=== PATIENT | male | born 1945 | race Caucasian/White ===

== ENCOUNTER 2024-11-22 17:11 | Inpatient (IN) | payer OTHER, SELFPAY ==
[2024-11-22 17:52] VITALS: BMI 31.4
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
[2024-11-22 20:00] VITALS: BP 132/73; PULSE 68; RESP 17; TEMP 36.8; O2SAT 95
[2024-11-22] MEDS: traZODone HCL 50 MG TABLET PO (20:37)
[2024-11-22] MEDS: OLANZapine ODT 10 MG TAB.RAPDIS TRANSLINGU (20:37)
[2024-11-22] MEDS: Tamsulosin HCL 0.4 MG CAPSULE PO (20:39)
[2024-11-22] MEDS: Divalproex Sodium 250 MG TABLET.DR PO (20:39)
[2024-11-22] MEDS: Atorvastatin Calcium 10 MG TABLET PO (20:39)
--- NOTE | 2024-11-22 22:38 | P.CONHOSP_ITS ---
History of Present Illness Data of Consult Service Date: 11/22/24 Requesting physician: Bernice Rangel Primary Care Provider: Unknown Physician HPI Reason for consult: Medical H and P Patient is an 78-year-old male with past medical history of Alzheimer's, GERD, BPH, hyperlipidemia, PTSD, and ITP (per medical records from [place]) was cooperative with history and physical but not able to answer specific questions regarding past medical history or past surgical history. Patient was able to follow commands and participate in exam. Patient was experiencing increasing agitation and aggressiveness towards patients and staff and was transferred to [facility] for medical workup. UA was negative, chest x-ray negative, no obvious source of infection. Patient was cleared and was transferred to [facility] psychiatric unit for further evaluation. Currently patient's vital signs are stable, EKG performed at [facility] indicated first-degree AVB, unable to view actual EKG so unable to clarify MN interval. Heart rate 66. No evidence of open wounds, but patient did have excoriations on the left arm only. No issues with chest pain, shortness of breath, nausea, vomiting, diarrhea or constipation. Patient believed he was 82 and it was the month of April 1984 and patient stated he was ?downstairs ?. Patient did not exhibit any aggression or agitation at the time of the exam. Neuro exam also within normal limits. Review of Systems Review of Systems: Patient denies chest pain, shortness of breath, abdominal pain, nausea, vomiting, lower leg pain, headache, visual changes. Yes all other systems are reviewed and are negative [facility] Medical History (Updated 11/22/24 @ 22:44 by GRADY Cosme) Chronic ITP (idiopathic thrombocytopenia) PTSD (post-traumatic stress disorder) HLD (hyperlipidemia) BPH (benign prostatic hyperplasia) Alzheimer dementia GERD (gastroesophageal reflux disease) Cognitive capacity: Alert to self only Functional capacity: independent ambulation Pertinent family history: Patient unable to provide due to dementia Social History Household Members: Other Housing: Senior Care Do you presently have visiting nurse or other home services: No Patient Tobacco Use Status: Never used Tobacco Use of substances other than those prescribed or required for medical reasons: No Currently Displaying Signs/Symptoms of Drug Intoxication Withdrawal: No Have you been hit, kicked, punched, or otherwise hurt by someone within the past year? If so, by whom?: No Do you feel safe in your current relationship?: Yes Is there a partner from a previous relationship who is making you feel unsafe now?: No Are you made to feel afraid or neglected: No Advance Directives: No Advance Directives Information Provided: Yes Do you have a plan to hurt others: No Plan Recently lost weight without trying: No Eating poorly because of decreased appetite: No Nutrition Risks: No Nutritional Risk Poor oral hygiene: No (with prompts) Ebola Risk: Travel/Contact With Anyone From Affected Area/s: No Has Patient Experienced Ebola Symptoms: No Meds Allergies Allergy/AdvReac Type Severity Reaction Status Date / Time No Known Allergies Allergy Verified 11/22/24 19:09 Active Medications: Current Medications Acetaminophen (Acetaminophen 325 Mg Tablet) 650 mg PO Q6H PRN PRN Reason: Headache/Pain, Scale 1-10 Al Hydroxide/Mg Hydroxide (Magnesium Hydrox/Alum Hydrox 30 Ml Oral.Susp) 30 ml PO Q6H PRN PRN Reason: Heartburn/Nausea Aspirin (Aspirin Enteric Coated 81 Mg Tablet.) 81 mg PO DAILY [facility] Atorvastatin Calcium (Atorvastatin Calcium 10 Mg Tablet) 10 mg PO BEDTIME [facility] Last Admin: 11/22/24 20:39 Dose: 10 mg Divalproex Sodium (Divalproex Sodium 250 Mg Tablet.) 250 mg PO BID [facility] Last Admin: 11/22/24 20:39 Dose: 250 mg Finasteride (Finasteride 5 Mg Tablet) 5 mg PO DAILY [facility] Lorazepam (Lorazepam 1 Mg Tablet) 1 mg PO DAILY PRN PRN Reason: Anxiety Magnesium Hydroxide (Milk Of Magnesia 30 Ml Oral.Susp) 30 ml PO DAILY PRN PRN Reason: Constipation Memantine (Memantine Hcl 5 Mg Tablet) 5 mg PO DAILY [facility] Olanzapine (Olanzapine Odt 10 Mg Tab.Rapdis) 10 mg TRANSLINGU BID [facility] Last Admin: 11/22/24 20:37 Dose: 10 mg Omeprazole (Omeprazole 20 Mg Capsule.) 20 mg PO DAILY@0630 [facility] Senna/Docusate Sodium (Sennosides/Docusate Sodium Tablet) 1 tab PO BID PRN PRN Reason: Constipation Tamsulosin HCl (Tamsulosin Hcl 0.4 Mg Capsule) 0.4 mg PO BEDTIME [facility] Last Admin: 11/22/24 20:39 Dose: 0.4 mg Trazodone HCl (Trazodone Hcl 50 Mg Tablet) 50 mg PO BEDTIME MRX1 PRN PRN Reason: Insomnia Last Admin: 11/22/24 20:37 Dose: 50 mg Home Medications ?Medication ?Instructions ?Recorded ?Confirmed ?Last Taken ?Type acetaminophen 325 mg tablet 650 mg PO Q6H PRN Pain (Scale 11/22/24 11/22/24 Unknown History (Tylenol) Score 1-3) aspirin 81 mg tablet,delayed 81 mg PO DAILY 11/22/24 11/22/24 11/22/24 09:00 History release divalproex 125 mg tablet,delayed 125 mg PO BID 11/22/24 11/22/24 11/22/24 09:00 History release docusate sodium 100 mg capsule 100 mg PO DAILY 11/22/24 11/22/24 Unknown History finasteride 5 mg tablet 5 mg PO DAILY 11/22/24 11/22/24 11/22/24 09:00 History lorazepam 1 mg tablet 1 mg PO BEDTIME 11/22/24 11/22/24 Unknown History lorazepam 1 mg tablet 1 mg PO DAILY PRN Anxiety 11/22/24 11/22/24 Unknown History meloxicam 15 mg tablet 15 mg PO DAILY 11/22/24 11/22/24 Unknown History memantine 5 mg tablet 5 mg PO QAM 11/22/24 11/22/24 11/22/24 09:00 History olanzapine 10 mg disintegrating 10 mg PO BID 11/22/24 11/22/24 11/22/24 09:00 History tablet omeprazole 40 mg capsule,delayed 40 mg PO DAILY 11/22/24 11/22/24 Unknown History release prazosin 1 mg capsule 3 mg PO BEDTIME 11/22/24 11/22/24 11/21/24 20:00 History simvastatin 20 mg tablet 20 mg PO BEDTIME 11/22/24 11/22/24 11/21/24 21:00 History tamsulosin 0.4 mg capsule (Flomax) 0.4 mg PO DAILY 11/22/24 11/22/24 Unknown History trazodone 100 mg tablet 100 mg PO BEDTIME PRN Insomnia 11/22/24 11/22/24 11/21/24 20:00 History Physical Exam Vital Signs and Narrative: Vital Signs: Last Vital Signs Temp 98.3 F 11/22/24 20:00 Pulse 68 11/22/24 20:00 Resp 17 11/22/24 20:00 BP 132/73 11/22/24 20:00 Pulse Ox 95 11/22/24 20:00 O2 Del Method Room Air 11/22/24 20:00 BMI result Body Mass Index 31.4 Alert and orientated X1, unable to provide PMSH Neuro: CN II-X11 intact, no deficits, visual acuity intact EYES: PERRLA, EOM intact ENT: hearing intact, no issues with swallowing, uvula midline, lips moist, nares patent no epistaxis Cardiac: S1 S2 RRR, no murmur, no JVD, no edema in Lower ext Pulmonary: lungs clear to auscultation B Abdominal: BS active in all 4 quadrants, no guarding, tenderness, rebounding MSK: strength 5/5 upper and lower extremities, gait steady : no CVA tenderness no bladder distension Extremities: no edema in lower extremities, PT and DP pulses palpable +2 Psych: mood stable, judgement and insight poor Skin: excoriations L forearm Assessment and Plan (1) First degree atrioventricular block: Status: Acute Plan sheela is an 78-year-old male with past medical history of Alzheimer's, GERD, BPH, hyperlipidemia, PTSD, and ITP (per medical records from [place]) seen on the psychiatry unit for his medical H and P. Due to patient's level of dementia patient was unable to provide any medical or surgical history. Patient was able to participate in exam and follow commands. First-degree AV block, via EKG done at [facility] -recommend repeating EKG especially if heart rate stays below 60, and to monitor QTC. Currently heart rate is 66 -patient is not on any AV ra blocking agents -check TSH and free T4, reconsult if levels are abnormal -added magnesium level to labs -re-consult hospitalist with any concerns regarding EKG or clinical presentation BPH -continue tamsulosin and finasteride -UA was negative at [facility], no indication to repeat UA GERD -continue omeprazole -avoid food triggers Hyperlipidemia -continue simvastatin, aspirin and follow cardiac diet Idiopathic thrombocytopenia -level is above 100,000 with no spontaneous episodes of bleeding -continue to monitor platelet count at least weekly .-if less than 75,000 reconsult hospitalist for further review -recommend outpatient Hematology if needed We thank you for this consultation in the hospitalist group will currently sign off as patient has no pertinent medical issues at this time. Please feel free to reconsult hospitalist group for any medical concerns or needs.
[2024-11-23] MEDS: Omeprazole 20 MG CAPSULE.DR PO (06:12)
[2024-11-23 06:30] VITALS: BMI 31.2
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
[2024-11-23 09:29] LABS: Estimated Average Glucose 100 mg/dL; Hemoglobin A1C 127.8795 umol/L; Hemoglobin A1c % 5.1 % (<6.0); Total Hemoglobin (HGBA1C) 3929.4981 umol/L
[2024-11-23] MEDS: OLANZapine ODT 10 MG TAB.RAPDIS TRANSLINGU ×2 (09:34→20:55)
[2024-11-23] MEDS: Finasteride 5 MG TABLET PO (09:34)
[2024-11-23] MEDS: Memantine HCl 5 MG TABLET PO (09:34)
[2024-11-23] MEDS: Divalproex Sodium 250 MG TABLET.DR PO ×2 (09:34→20:55)
[2024-11-23] MEDS: Aspirin Enteric Coated 81 MG TABLET.DR PO (09:34)
[2024-11-23 09:37] LABS: Alanine Aminotransferase 37 U/L (0-40); Albumin Level 4.2 g/dL (3.5-5.0); Alkaline Phosphatase 172 U/L (39-117); Anion Gap 11 (12-20); Aspartate Amino Transferase 30 U/L (5-37); Bilirubin Total 0.8 mg/dL (0.0-1.0); Blood Urea Nitrogen 18 mg/dL (9-16); Calcium 9.1 mg/dL (8.4-10.2); Carbon Dioxide 25 mmol/L (22-29); Chloride 108 mmol/L (96-108); Cholesterol 139 mg/dL (<200); Creatinine Clr Calc Pharmacy 89.3; Estimated Glomerular Filt Rate > 60; Glucose Random 105 mg/dL (60-115); HDL Cholesterol 45 mg/dL (>40); LDL Cholesterol Calculated 78 mg/dL (<100); Potassium 4.1 mmol/L (3.3-5.1); Sodium 140 mmol/L (135-145); Total Protein 6.9 g/dL (6.5-8.0); Triglycerides 80 mg/dL (<150)
[2024-11-23 09:38] VITALS: BP 148/82; PULSE 58; RESP 18; TEMP 36.1; O2SAT 98
[2024-11-23 09:50] LABS: Thyroid Stimulating Hormone 1.06 uIU/mL (0.32-4.0)
[2024-11-23 10:05] LABS: Folate 9.5 ng/mL (> or = 4.0); Vitamin B12 496 pg/mL (200-900)
[2024-11-23 13:50] VITALS: BMI 31.2
[2024-11-23] MEDS: Acetaminophen 325 MG TABLET 650 MG PO (16:17)
[2024-11-23 20:00] VITALS: BP 155/76; PULSE 67; RESP 18; TEMP 36.6; O2SAT 96
[2024-11-23] MEDS: Tamsulosin HCL 0.4 MG CAPSULE PO (20:55)
[2024-11-23] MEDS: Atorvastatin Calcium 10 MG TABLET PO (20:55)
[2024-11-23] MEDS: traZODone HCL 50 MG TABLET PO (20:56)
--- NOTE | 2024-11-24 | ECG_ITS ---
Test Reason : av block Blood Pressure : */* mmHG Vent. Rate : 65 BPM Atrial Rate : 65 BPM P-R Int : 194 ms QRS Dur : 90 ms QT Int : 398 ms P-R-T Axes : 23 -19 28 degrees QTcB Int : 413 ms Sinus rhythm with Premature atrial complexes Inferior infarct , age undetermined Abnormal ECG No previous ECGs available Referred By: Bernice Rangel Electronically Signed By: Efren Traylor
[2024-11-24] MEDS: Omeprazole 20 MG CAPSULE.DR PO (06:32)
[2024-11-24 08:33] VITALS: BP 134/72; PULSE 57; RESP 16; TEMP 36.2; O2SAT 98
[2024-11-24] MEDS: Memantine HCl 5 MG TABLET PO (08:36)
[2024-11-24] MEDS: Finasteride 5 MG TABLET PO (08:36)
[2024-11-24] MEDS: OLANZapine ODT 10 MG TAB.RAPDIS TRANSLINGU ×2 (08:36→20:11)
[2024-11-24] MEDS: Aspirin Enteric Coated 81 MG TABLET.DR PO (08:37)
[2024-11-24] MEDS: Divalproex Sodium 250 MG TABLET.DR PO ×2 (08:37→20:11)
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
[2024-11-24] MEDS: LORazepam 1 MG TABLET PO (15:26)
[2024-11-24 19:34] VITALS: BP 151/78; PULSE 65; RESP 18; TEMP 36.2; O2SAT 98
[2024-11-24] MEDS: Atorvastatin Calcium 10 MG TABLET PO (20:11)
[2024-11-24] MEDS: Tamsulosin HCL 0.4 MG CAPSULE PO (20:11)
[2024-11-24] MEDS: QUEtiapine Fumarate 50 MG TABLET PO (20:11)
[2024-11-25] MEDS: Omeprazole 20 MG CAPSULE.DR PO (05:42)
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
[2024-11-25 08:29] VITALS: BP 152/72; PULSE 64; RESP 18; TEMP 36.5; O2SAT 97
[2024-11-25] MEDS: Memantine HCl 5 MG TABLET PO (08:32)
[2024-11-25] MEDS: QUEtiapine Fumarate 50 MG TABLET PO ×2 (08:32→15:36)
[2024-11-25] MEDS: Aspirin Enteric Coated 81 MG TABLET.DR PO (08:32)
[2024-11-25] MEDS: OLANZapine ODT 10 MG TAB.RAPDIS TRANSLINGU ×2 (08:32→20:11)
[2024-11-25] MEDS: Finasteride 5 MG TABLET PO (08:32)
[2024-11-25] MEDS: Divalproex Sodium 250 MG TABLET.DR PO ×2 (08:32→20:11)
[2024-11-25] MEDS: LORazepam 1 MG TABLET PO (15:36)
[2024-11-25 20:00] VITALS: BP 126/71; PULSE 70; RESP 18; TEMP 36.4; O2SAT 96
[2024-11-25] MEDS: Atorvastatin Calcium 10 MG TABLET PO (20:11)
[2024-11-25] MEDS: traZODone HCL 50 MG TABLET PO (20:11)
[2024-11-25] MEDS: Tamsulosin HCL 0.4 MG CAPSULE PO (20:11)
[2024-11-26] MEDS: Omeprazole 20 MG CAPSULE.DR PO (05:44)
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
[2024-11-26 08:51] VITALS: BP 122/60; PULSE 72; RESP 16; TEMP 36.4; O2SAT 95
[2024-11-26] MEDS: Finasteride 5 MG TABLET PO (08:57)
[2024-11-26] MEDS: Memantine HCl 5 MG TABLET PO (08:57)
[2024-11-26] MEDS: Divalproex Sodium 250 MG TABLET.DR PO ×2 (08:57→20:11)
[2024-11-26] MEDS: Aspirin Enteric Coated 81 MG TABLET.DR PO (08:57)
[2024-11-26] MEDS: OLANZapine ODT 10 MG TAB.RAPDIS TRANSLINGU ×2 (08:57→20:11)
[2024-11-26 20:00] VITALS: BP 139/75; PULSE 74; RESP 18; TEMP 36.4; O2SAT 95
[2024-11-26] MEDS: QUEtiapine Fumarate 50 MG TABLET PO (20:11)
[2024-11-26] MEDS: Atorvastatin Calcium 10 MG TABLET PO (20:11)
[2024-11-26] MEDS: Tamsulosin HCL 0.4 MG CAPSULE PO (20:11)
[2024-11-26] MEDS: traZODone HCL 50 MG TABLET PO (20:11)
[2024-11-27] MEDS: Omeprazole 20 MG CAPSULE.DR PO (06:10)
[2024-11-27 07:28] LABS: Ammonia 53 umol/L (13-55)
[2024-11-27 07:30] LABS: Valproate 25.2 mcg/mL (50.0-100.0)
[2024-11-27 08:00] VITALS: RESP 16; TEMP 36.3
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
[2024-11-27] MEDS: OLANZapine ODT 10 MG TAB.RAPDIS TRANSLINGU ×2 (10:08→21:18)
[2024-11-27] MEDS: Aspirin Enteric Coated 81 MG TABLET.DR PO (10:08)
[2024-11-27] MEDS: Finasteride 5 MG TABLET PO (10:08)
[2024-11-27] MEDS: Memantine HCl 5 MG TABLET PO (10:09)
[2024-11-27] MEDS: Divalproex Sodium 250 MG TABLET.DR PO ×2 (10:09→21:18)
[2024-11-27] MEDS: LORazepam 1 MG TABLET PO (15:12)
[2024-11-27 20:00] VITALS: BP 130/63; PULSE 61; RESP 18; TEMP 36.1; O2SAT 92
[2024-11-27] MEDS: Atorvastatin Calcium 10 MG TABLET PO (21:18)
[2024-11-27] MEDS: Tamsulosin HCL 0.4 MG CAPSULE PO (21:18)
[2024-11-28] MEDS: Omeprazole 20 MG CAPSULE.DR PO (05:53)
[2024-11-28 08:00] VITALS: BP 132/67; PULSE 61; RESP 17; TEMP 36.5; O2SAT 96
[2024-11-28] MEDS: Memantine HCl 5 MG TABLET PO (08:50)
[2024-11-28] MEDS: Divalproex Sodium 250 MG TABLET.DR PO ×2 (08:50→20:31)
[2024-11-28] MEDS: OLANZapine ODT 10 MG TAB.RAPDIS TRANSLINGU ×2 (08:50→20:30)
[2024-11-28] MEDS: Aspirin Enteric Coated 81 MG TABLET.DR PO (08:50)
[2024-11-28] MEDS: Finasteride 5 MG TABLET PO (08:50)
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
[2024-11-28] MEDS: QUEtiapine Fumarate 50 MG TABLET PO (19:02)
[2024-11-28] MEDS: LORazepam 1 MG TABLET PO (19:02)
[2024-11-28 20:00] VITALS: BP 137/75; PULSE 70; RESP 16; TEMP 36.6; O2SAT 96
[2024-11-28] MEDS: Tamsulosin HCL 0.4 MG CAPSULE PO (20:30)
[2024-11-28] MEDS: traZODone HCL 50 MG TABLET PO ×2 (20:30→21:56)
[2024-11-28] MEDS: Atorvastatin Calcium 10 MG TABLET PO (20:31)
[2024-11-29] MEDS: Omeprazole 20 MG CAPSULE.DR PO (06:18)
[2024-11-29 08:00] VITALS: BP 132/70; PULSE 62; TEMP 36.9; O2SAT 97
[2024-11-29] MEDS: Aspirin Enteric Coated 81 MG TABLET.DR PO (08:49)
[2024-11-29] MEDS: Finasteride 5 MG TABLET PO (08:49)
[2024-11-29] MEDS: Divalproex Sodium 250 MG TABLET.DR PO ×2 (08:50→20:50)
[2024-11-29] MEDS: Memantine HCl 5 MG TABLET PO (08:51)
[2024-11-29] MEDS: OLANZapine ODT 10 MG TAB.RAPDIS TRANSLINGU ×2 (12:58→20:51)
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
[2024-11-29 20:00] VITALS: BP 133/71; PULSE 65; RESP 18; TEMP 36.1; O2SAT 96
[2024-11-29] MEDS: Tamsulosin HCL 0.4 MG CAPSULE PO (20:50)
[2024-11-29] MEDS: traZODone HCL 50 MG TABLET PO (20:51)
[2024-11-29] MEDS: Atorvastatin Calcium 10 MG TABLET PO (20:51)
[2024-11-30] MEDS: Omeprazole 20 MG CAPSULE.DR PO (06:30)
[2024-11-30 09:45] VITALS: BP 112/58; PULSE 68; RESP 16; TEMP 36.4; O2SAT 96
[2024-11-30] MEDS: Finasteride 5 MG TABLET PO (10:11)
[2024-11-30] MEDS: Divalproex Sodium 250 MG TABLET.DR PO ×2 (10:11→20:07)
[2024-11-30] MEDS: Memantine HCl 5 MG TABLET PO (10:11)
[2024-11-30] MEDS: Aspirin Enteric Coated 81 MG TABLET.DR PO (10:11)
[2024-11-30] MEDS: OLANZapine ODT 10 MG TAB.RAPDIS 5 MG TRANSLINGU ×2 (14:04→20:07)
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
[2024-11-30 20:00] VITALS: BP 128/68; PULSE 66; RESP 18; TEMP 36.6; O2SAT 97
[2024-11-30] MEDS: traZODone HCL 50 MG TABLET PO (20:07)
[2024-11-30] MEDS: Tamsulosin HCL 0.4 MG CAPSULE PO (20:07)
[2024-11-30] MEDS: Atorvastatin Calcium 10 MG TABLET PO (20:07)
[2024-12-01] MEDS: Omeprazole 20 MG CAPSULE.DR PO (05:32)
[2024-12-01 08:00] VITALS: BP 128/66; PULSE 59; RESP 18; TEMP 36.6; O2SAT 96
[2024-12-01 08:08] LABS: Ammonia 64 umol/L (13-55)
[2024-12-01 08:11] LABS: Valproate 28.5 mcg/mL (50.0-100.0)
[2024-12-01] MEDS: Aspirin Enteric Coated 81 MG TABLET.DR PO (08:51)
[2024-12-01] MEDS: Divalproex Sodium 250 MG TABLET.DR PO (08:51)
[2024-12-01] MEDS: Finasteride 5 MG TABLET PO (08:51)
[2024-12-01] MEDS: Memantine HCl 5 MG TABLET PO (08:51)
[2024-12-01 08:59] VITALS: BMI 31.1
[2024-12-01] MEDS: OLANZapine ODT 10 MG TAB.RAPDIS 5 MG TRANSLINGU ×2 (12:28→21:26)
[2024-12-01] MEDS: LORazepam 1 MG TABLET PO (13:38)
[2024-12-01] MEDS: Lactulose 20 GM/30 ML SOLUTION 10 GM PO (16:34)
[2024-12-01] MEDS: QUEtiapine Fumarate 50 MG TABLET PO (17:40)
[2024-12-01 20:00] VITALS: BP 130/68; PULSE 58; RESP 18; TEMP 36.6; O2SAT 97
[2024-12-01] MEDS: Atorvastatin Calcium 10 MG TABLET PO (21:20)
[2024-12-01] MEDS: Tamsulosin HCL 0.4 MG CAPSULE PO (21:20)
[2024-12-02] MEDS: Omeprazole 20 MG CAPSULE.DR PO (06:24)
[2024-12-02 08:50] VITALS: BP 121/71; PULSE 52; RESP 16; TEMP 36.7; O2SAT 96
[2024-12-02] MEDS: Memantine HCl 5 MG TABLET PO (08:53)
[2024-12-02] MEDS: Aspirin Enteric Coated 81 MG TABLET.DR PO (08:53)
[2024-12-02] MEDS: Finasteride 5 MG TABLET PO (08:54)
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
[2024-12-02 12:44] LABS: Ammonia 47 umol/L (13-55)
[2024-12-02] MEDS: OLANZapine ODT 10 MG TAB.RAPDIS 5 MG TRANSLINGU ×2 (13:29→22:22)
[2024-12-02] MEDS: QUEtiapine Fumarate 50 MG TABLET PO (17:22)
[2024-12-02 20:00] VITALS: BP 138/66; PULSE 66; RESP 16; TEMP 36.3; O2SAT 96
[2024-12-02] MEDS: Atorvastatin Calcium 10 MG TABLET PO (20:32)
[2024-12-02] MEDS: Tamsulosin HCL 0.4 MG CAPSULE PO (20:32)
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
[2024-12-03] MEDS: Omeprazole 20 MG CAPSULE.DR PO (06:09)
[2024-12-03 08:06] VITALS: BP 117/58; PULSE 54; RESP 20; TEMP 36.4; O2SAT 94
[2024-12-03] MEDS: Memantine HCl 5 MG TABLET PO (08:08)
[2024-12-03] MEDS: Aspirin Enteric Coated 81 MG TABLET.DR PO (08:08)
[2024-12-03] MEDS: Finasteride 5 MG TABLET PO (08:09)
[2024-12-03] MEDS: OLANZapine ODT 10 MG TAB.RAPDIS 5 MG TRANSLINGU ×2 (13:34→20:32)
[2024-12-03] MEDS: QUEtiapine Fumarate 50 MG TABLET PO (15:18)
[2024-12-03 20:00] VITALS: BP 148/74; PULSE 72; RESP 18; TEMP 36.8; O2SAT 98
[2024-12-03] MEDS: Atorvastatin Calcium 10 MG TABLET PO (20:34)
[2024-12-03] MEDS: LORazepam 1 MG TABLET PO (20:34)
[2024-12-03] MEDS: Tamsulosin HCL 0.4 MG CAPSULE PO (20:35)
[2024-12-04] MEDS: Omeprazole 20 MG CAPSULE.DR PO (05:58)
[2024-12-04 08:00] VITALS: BP 136/72; PULSE 75; RESP 16; TEMP 36.8; O2SAT 97
[2024-12-04] MEDS: Memantine HCl 5 MG TABLET PO (08:32)
[2024-12-04] MEDS: Finasteride 5 MG TABLET PO (08:32)
[2024-12-04] MEDS: Aspirin Enteric Coated 81 MG TABLET.DR PO (08:37)
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
[2024-12-04] MEDS: OLANZapine ODT 10 MG TAB.RAPDIS 5 MG TRANSLINGU ×2 (12:44→20:06)
[2024-12-04] MEDS: Acetaminophen 325 MG TABLET 650 MG PO (14:11)
[2024-12-04 20:00] VITALS: BP 154/88; PULSE 75; RESP 18; TEMP 36.6; O2SAT 95
[2024-12-04] MEDS: traZODone HCL 50 MG TABLET PO (20:05)
[2024-12-04] MEDS: Atorvastatin Calcium 10 MG TABLET PO (20:05)
[2024-12-04] MEDS: Tamsulosin HCL 0.4 MG CAPSULE PO (20:05)
[2024-12-05] MEDS: Omeprazole 20 MG CAPSULE.DR PO (05:50)
[2024-12-05 08:00] VITALS: BP 138/76; PULSE 72; RESP 18; TEMP 36.7; O2SAT 98
[2024-12-05] MEDS: QUEtiapine Fumarate 50 MG TABLET PO (08:51)
[2024-12-05] MEDS: Aspirin Enteric Coated 81 MG TABLET.DR PO (08:51)
[2024-12-05] MEDS: Finasteride 5 MG TABLET PO (08:51)
[2024-12-05] MEDS: Memantine HCl 5 MG TABLET PO (08:52)
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
[2024-12-05] MEDS: OLANZapine ODT 10 MG TAB.RAPDIS 5 MG TRANSLINGU ×2 (14:28→20:57)
[2024-12-05] MEDS: LORazepam 0.5 MG TABLET PO (16:43)
[2024-12-05 20:00] VITALS: BP 135/65; PULSE 68; RESP 16; TEMP 36.5; O2SAT 92
[2024-12-05] MEDS: Tamsulosin HCL 0.4 MG CAPSULE PO (20:58)
[2024-12-05] MEDS: Atorvastatin Calcium 10 MG TABLET PO (20:58)
[2024-12-06] MEDS: Omeprazole 20 MG CAPSULE.DR PO (06:27)
[2024-12-06 08:00] VITALS: BP 133/64; PULSE 73; RESP 16; TEMP 36.7; O2SAT 95
[2024-12-06] MEDS: Aspirin Enteric Coated 81 MG TABLET.DR PO (08:13)
[2024-12-06] MEDS: Finasteride 5 MG TABLET PO (08:14)
[2024-12-06] MEDS: Memantine HCl 5 MG TABLET PO (08:14)
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
[2024-12-06] MEDS: LORazepam 0.5 MG TABLET PO (09:08)
== END 2024-12-06 10:15 | disposition home or self-care (01) | DRG 57 ==
PROVIDERS: Admitting Provider Social Worker; Visit Provider Social Worker
DX: G30.9 Alzheimer's disease, unspecified (principal); D69.3 Immune thrombocytopenic purpura; F02.80 Dementia in other diseases classified elsewhere, unspecified severity, without behavioral disturbance, psychotic disturbance, mood disturbance, and anxiety; K21.9 Gastro-esophageal reflux disease without esophagitis; I44.0 Atrioventricular block, first degree; N40.0 Benign prostatic hyperplasia without lower urinary tract symptoms; E78.5 Hyperlipidemia, unspecified; Z79.82 Long term (current) use of aspirin; Z79.899 Other long term (current) drug therapy
CPT/HCPCS: 36415; 80053; 80061; 80164; 82140; 82607; 82746; 83036; 84443; 93005

== ENCOUNTER 2024-11-22 17:11 | Outpatient (BNV) | payer OTHER, SELFPAY | END 2024-11-24 09:08 | PROVIDERS: Admitting Provider Social Worker; Visit Provider Internal Medicine Cardiovascular Disease | DX: I49.1 Atrial premature depolarization (principal) | CPT/HCPCS: 93010 ==

== ENCOUNTER → 2024-11-22 17:11 | Outpatient (BNV) | payer OTHER, SELFPAY | PROVIDERS: Admitting Provider Social Worker; Visit Provider Social Worker | DX: F03.90 Unspecified dementia, unspecified severity, without behavioral disturbance, psychotic disturbance, mood disturbance, and anxiety (principal); I44.0 Atrioventricular block, first degree | CPT/HCPCS: 90792 ==

== ENCOUNTER → 2024-11-22 17:11 | Outpatient (BNV) | payer OTHER, SELFPAY | PROVIDERS: Admitting Provider Social Worker; Visit Provider Nurse Practitioner Family | DX: I44.0 Atrioventricular block, first degree (principal) | CPT/HCPCS: 99222 ==